=== PATIENT | male | born 1995 | race African-American/Black ===

== ENCOUNTER 2018-09-15 07:31 | Emergency (ER) | payer OTHER ==
[~2018-09-15] VITALS: Ht 180.3 cm; Wt 62.1 kg
[~2018-09-15 07:31] MED LIST: AMOXICILLIN 50500 M1 PO; CLARITIN10 MG PO; FLONASE 0.05%50 MCG NASAL; NOHOMEMEDICATIONS; ZOFRAN ODT4 MG PO
[2018-09-15 08:57] LABS: ABSOLUTE NEUTROPHILS 10.5 thou/uL (1.4-8.2); BASOPHILS 0.2 % (0.0-2.0); HEMATOCRIT 38.6 % (42.0-52.0); HEMOGLOBIN 13.2 gm/dL (14.0-18.0); MCH 32.5 pg (26.0-34.0); MCHC 34.1 g/dL (28.0-37.0); MCV 95.3 fL (80.0-100.0); MONOCYTES 6.6 % (1.0-8.0); PLATELET COUNT 127 thou/uL (150-400); POLYS 88.2 % (36.0-66.0); RBC 4.06 mil/uL (4.50-6.00); RDW 12.7 % (10.5-14.5); WBC 11.9 thou/uL (4.0-11.0)
[2018-09-15 09:04] LABS: CALCIUM 9.7 mg/dL (8.5-10.1); CREATININE 0.9 mg/dL (0.7-1.3); POTASSIUM 3.8 mmol/L (3.5-5.1)
[2018-09-15] MEDS ORDERED: ZPAK PO (09:06)
[2018-09-15] MEDS ORDERED: GUAIFEN-CODEINE10 ML PO (09:06)
[2018-09-15 10:05] VITALS: BP 112/72
== END 2018-09-15 10:06 | disposition home or self-care (01) ==
LOC: ER 07:31
PROVIDERS: Emergency Medicine
DX: J18.9 Pneumonia, unspecified organism (principal); R04.2 Hemoptysis; F17.210 Nicotine dependence, cigarettes, uncomplicated

== ENCOUNTER 2019-06-17 13:26 | Emergency (ER) | payer OTHER ==
[~2019-06-17] VITALS: Ht 175.3 cm; Wt 62.1 kg
[~2019-06-17 13:26] MED LIST changes: +GUAIFEN-CODEINE10 ML PO; +ZPAK PO
[2019-06-17] MEDS ORDERED: VENTOLIN HFA 1818 GM INH (13:46)
[2019-06-17 14:20] LABS: ABSOLUTE NEUTROPHILS 7.9 thou/uL (1.4-8.2); BASOPHILS 0.2 % (0.0-2.0); HEMATOCRIT 44.7 % (42.0-52.0); HEMOGLOBIN 15.2 gm/dL (14.0-18.0); LYMPHOCYTES 8.8 % (24.0-44.0); MCH 33.2 pg (26.0-34.0); MCV 97.5 fL (80.0-100.0); MONOCYTES 6.3 % (1.0-8.0); PLATELET COUNT 107 thou/uL (150-400); POLYS 84.7 % (36.0-66.0); RBC 4.59 mil/uL (4.50-6.00); RDW 12.5 % (10.5-14.5); WBC 9.3 thou/uL (4.0-11.0)
[2019-06-17 15:18] LABS: CALCIUM 9.3 mg/dL (8.5-10.1); CREATININE 1.1 mg/dL (0.7-1.3); POTASSIUM 3.2 mmol/L (3.5-5.1)
[2019-06-17 15:25] LABS: ALBUMIN 4.3 g/dL (3.4-5.0); TOTAL BILIRUBIN 1.2 mg/dL (<0.1-1.0); TOTAL PROTEIN 8.8 g/dL (6.4-8.2)
[2019-06-17 16:16] VITALS: BP 122/61
--- NOTE | 2019-06-18 11:41 | EKG ---
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1995 Requested By: Kamille Walsh Order Number: [id number] MD: Ryan Charles Measurements Intervals [place] Rate: 110 P: 0 MO: 72 QRS: 92 QRSD: 92 T: 16 QT: 325 QTc: 440 Interpretive Statements Sinus tachycardia Borderline right axis deviation Borderline T wave abnormalities No previous ECG available for comparison Electronically Signed On 06-18-2019 11:41:16 [employer] I 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
== END 2019-06-17 16:15 | disposition home or self-care (01) ==
LOC: ER 13:26
PROVIDERS: Physician Assistant
DX: B34.9 Viral infection, unspecified (principal); R55 Syncope and collapse; F17.210 Nicotine dependence, cigarettes, uncomplicated

== ENCOUNTER 2019-11-26 08:10 | Emergency (ER) | payer OTHER ==
[~2019-11-26] VITALS: Ht 175.3 cm; Wt 62.1 kg
[~2019-11-26 08:10] MED LIST changes: +VENTOLIN HFA 1818 GM INH
[2019-11-26 08:33] LABS: URINE GLUCOSE-RANDOM* NEGATIVE (Negative); URINE PROTEIN (DIPSTICK) 1+ (Negative)
[2019-11-26 08:34] LABS: URINE BILIRUBIN 1+ (Negative); URINE BLOOD 3+ (Negative); URINE CLARITY TURBID; URINE COLOR RED; URINE KETONES NEGATIVE (Negative); URINE LEUKOCYTES-REFLEX 1+ (Negative); URINE NITRITE-REFLEX POSITIVE (Negative); URINE SPECIFIC GRAVITY 1.015 (1.005-1.035); URINE UROBILINOGEN 0.2 E.U./dl (0.2-1.0)
[2019-11-26 08:35] LABS: ICTOTEST (BILI CONFIRMATORY) Positive (Negative)
[2019-11-26 08:42] LABS: BACTERIA-REFLEX 1-9 Few /HPF (None Seen); CASTS None Seen /LPF (None Seen); CRYSTALS None Seen /LPF (None Seen); SQUAMOUS None Seen /LPF (0-3); URINE RBC >20 Many /HPF (0-2); URINE WBC-REFLEX 0-5 Rare /HPF (0-5)
[2019-11-26 08:44] LABS: ABSOLUTE NEUTROPHILS 1.9 thou/uL (1.4-8.2); EOSINOPHILS 1.6 % (0.0-3.0); HEMATOCRIT 43.9 % (42.0-52.0); HEMOGLOBIN 14.8 gm/dL (14.0-18.0); LYMPHOCYTES 35.8 % (24.0-44.0); MCH 33.9 pg (26.0-34.0); MCHC 33.8 g/dL (28.0-37.0); MCV 100.6 fL (80.0-100.0); MONOCYTES 8.4 % (1.0-8.0); PLATELET COUNT 123 thou/uL (150-400); POLYS 53.2 % (36.0-66.0); RBC 4.36 mil/uL (4.50-6.00); RDW 12.9 % (10.5-14.5); WBC 3.6 thou/uL (4.0-11.0)
[2019-11-26 08:50] LABS: CALCIUM 8.9 mg/dL (8.5-10.1); CREATININE 1.1 mg/dL (0.7-1.3); POTASSIUM 3.6 mmol/L (3.5-5.1)
[2019-11-26] MEDS ORDERED: NAPROSYN500 MG PO (10:04)
[2019-11-26 10:17] VITALS: BP 126/79
== END 2019-11-26 10:17 | disposition home or self-care (01) ==
LOC: ER 08:10
PROVIDERS: Emergency Medicine
DX: R31.9 Hematuria, unspecified (principal); M54.5 Low back pain; F17.210 Nicotine dependence, cigarettes, uncomplicated; Z79.899 Other long term (current) drug therapy

== ENCOUNTER 2020-10-15 07:36 | Emergency (ER) | payer OTHER ==
[~2020-10-15] VITALS: Ht 175.3 cm; Wt 62.1 kg
[~2020-10-15 07:36] MED LIST changes: +NAPROSYN500 MG PO
[2020-10-15 09:16] VITALS: BP 113/68
== END 2020-10-15 09:20 | disposition home or self-care (01) ==
LOC: ER 07:36
DX: J02.9 Acute pharyngitis, unspecified (principal); F17.210 Nicotine dependence, cigarettes, uncomplicated; Z20.822 Contact with and (suspected) exposure to COVID-19; Z79.899 Other long term (current) drug therapy

== ENCOUNTER 2021-01-17 09:53 | Emergency (ER) | payer OTHER ==
[~2021-01-17] VITALS: Ht 175.3 cm; Wt 62.1 kg
[2021-01-17 10:40] LABS: URINE BILIRUBIN NEGATIVE (Negative); URINE BLOOD NEGATIVE (Negative); URINE CLARITY CLEAR; URINE COLOR YELLOW; URINE GLUCOSE-RANDOM* NEGATIVE (Negative); URINE KETONES NEGATIVE (Negative); URINE LEUKOCYTES-REFLEX NEGATIVE (Negative); URINE NITRITE-REFLEX NEGATIVE (Negative); URINE PROTEIN (DIPSTICK) NEGATIVE (Negative); URINE SPECIFIC GRAVITY >= 1.030 (1.005-1.035); URINE UROBILINOGEN 0.2 E.U./dl (0.2-1.0)
[2021-01-17] MEDS ORDERED: NAPROSYN500 M1 PO (11:42)
[2021-01-17 11:50] VITALS: BP 111/59
== END 2021-01-17 11:51 | disposition home or self-care (01) ==
LOC: ER 09:53
PROVIDERS: Emergency Medicine
DX: N50.812 Left testicular pain (principal); N50.811 Right testicular pain; F17.210 Nicotine dependence, cigarettes, uncomplicated

== ENCOUNTER 2021-01-28 13:59 | Emergency (ER) | payer OTHER ==
[~2021-01-28] VITALS: Ht 175.3 cm; Wt 62.1 kg
[~2021-01-28 13:59] MED LIST changes: +NAPROSYN500 M1 PO
[2021-01-28 14:04] VITALS: BP 124/66
== END 2021-01-28 14:37 | disposition home or self-care (01) ==
LOC: ER 13:59
DX: H57.89 Other specified disorders of eye and adnexa (principal); Z86.69 Personal history of other diseases of the nervous system and sense organs; F17.210 Nicotine dependence, cigarettes, uncomplicated